=== PATIENT | male | born 1980 | race Two or more races ===

== ENCOUNTER 2020-01-13 10:10 | Emergency (ER) | payer MEDICAID ==
[~2020-01-13] VITALS: Ht 165.1 cm; Wt 126.6 kg
[~2020-01-13 10:10] MED LIST: AMLO5TAB15 PO; ATOR20TA PO
[2020-01-13] MEDS ORDERED: SODIUM CHLORIDE 0.9% 1,000 ML IV ONE ×2 (10:30)
[2020-01-13 10:58] LABS: Urine Bacteria NONE SEEN /hpf (None Seen); Urine Blood Negative /uL (Negative); Urine Mucus FEW (None Seen); Urine Specific Gravity 1.025 (1.001-1.035); Urine WBC 1 /hpf (0 - 3)
[2020-01-13 11:52] LABS: Basophils # (auto) 0 10 ^3/uL (0-0.2); Basophils % (auto) 0.4 % (0.0-2.0); Eosinophils # (auto) 0.1 10 ^3/uL (0-0.8); Eosinophils % (auto) 1.4 % (0.0-7.0); Hematocrit 47.9 % (41.0-53.0); Hemoglobin 16.4 g/dL (13.5-17.5); Lymphocytes # (auto) 1.3 10 ^3/uL (0.4-5.4); Lymphocytes % (auto) 17.6 % (10.0-50.0); Mean Corpuscular Hemoglobin 32.6 pg (28.0-32.0); Mean Corpuscular Hgb Conc. 34.2 g/dL (32.0-36.0); Mean Corpuscular Volume 95.4 fL (80.0-100.0); Monocytes # (auto) 0.5 10 ^3/uL (0-1.3); Monocytes % (auto) 6.4 % (0.0-12.0); Neutrophils # (auto) 5.4 10 ^3/uL (1.6-8.6); Neutrophils % (auto) 74.2 % (37.0-80.0); Nucleated Red Blood Cells % 0.1 %; Platelet Count (auto) 318 10^3/uL (140-450); Red Blood Cells 5.02 10^6/uL (4.5-5.90); Red Cell Distribution Width 12.7 % (11.8-14.3); White Blood Cell 7.3 10^3/uL (4.4-10.8)
[2020-01-13 12:27] LABS: Alanine Aminotransferase 148 U/L (16-61); Albumin 3.8 g/dL (3.4-5.0); Anion Gap 7 (5-15); Aspartate Aminotransferase 72 U/L (15-37); BUN/Creatinine Ratio 18.4; Blood Urea Nitrogen 14 mg/dL (7-18); Calcium 8.7 mg/dL (8.5-10.1); Carbon Dioxide 24 mmol/L (21-32); Chloride 105 mmol/L (98-107); GFR African American 147 mL/min; GFR Non-African American 121 mL/min; Glucose 98 mg/dL (74-106); Lipase 78 U/L (73-393); Sodium 136 mmol/L (136-145); Total Protein 8.1 g/dL (6.4-8.2)
[2020-01-13 12:32] LABS: Alkaline Phosphatase 99 U/L (45-117); Bilirubin, Total 0.8 mg/dL (0.2-1.0)
[2020-01-13 16:00] VITALS: BP 130/78
== END 2020-01-13 16:45 | disposition home or self-care (01) ==
LOC: ER 10:10
DX: K80.20 Calculus of gallbladder without cholecystitis without obstruction (principal); J18.9 Pneumonia, unspecified organism; E78.5 Hyperlipidemia, unspecified; I10 Essential (primary) hypertension; F17.210 Nicotine dependence, cigarettes, uncomplicated; F12.10 Cannabis abuse, uncomplicated
CPT/HCPCS: 36415; 71045; 74176; 80053; 81001; 83690; 84484; 85025

== ENCOUNTER 2025-01-14 09:48 | Inpatient (IN) | payer MEDICAID ==
[~2025-01-14] VITALS: Ht 165.1 cm; Wt 126.0 kg
[~2025-01-14 09:48] MED LIST changes: +AMLO1TAB22 PO; -AMLO5TAB15 PO
--- NOTE | 2025-01-14 10:20 | ED.PDOC ---
GI ASSESSMENT HPI Comments 44 year old male with PMHx HTN, HLD presents to the ED with a chief complaint of RT flank pain onset 3 days. Patient states he has been experiencing RT flank pain radiating to RUQ as well as dark urine, metallic taste in mouth. Patient was drinking ETOH daily, about 2 tall cans a day, last drink was 1 week ago. Denies fever, chills, headache, dizziness,dysuria, hematuria, hematemesis, nausea, vomiting, diarrhea, chest pain, shortness of breath, changes in skin color. No other symptoms or modifying factors present at this time. Chief Complaint: Flank Pain Time Seen by MD: 10:05 Primary Care Provider: MAXIME Stout Notes: Medications, Allergies Allergies: Coded Allergies: NO KNOWN ALLERGIES (Unverified , 02/01/17) Home Meds Reported Medications Atorvastatin Calcium (Lipitor) 20 Mg Tab, 1 TAB PO DAILY, #90 TAB 1 Refill 02/02/17 Amlodipine Besylate (Amlodipine Besylate) 5 Mg Tab, 10 MG PO DAILY for 30 Days, MG 02/02/17 Information Source: Patient Mode of Arrival: Ambulatory Duration: Since onset Prehospital treatment: None Quality: Sharp Vomitus: None Severity: Moderate Recent: None Recent Hx of: None Pain Location: RUQ Modifying Factors: Nothing Associated sign and symptoms: Abdominal Pain Past Medical History PAST MEDICAL HISTORY: High Lipids, HTN Surgical History: Hernia Repair Family History Family History: No family hx of Heart cipriano, No family hx of HTN Social History Smoker: Cigarettes, Greater Than 1 Pack/Day, Other Alcohol: Heavy Drugs: Marijuana Lives In: Home Constitutional: denies: chills, diaphoresis, fatigue, fever, malaise, sweats, weakness, others EENTM: denies: blurred vision, double vision, ear bleeding, ear discharge, ear drainage, ear pain, ear ringing, eye pain, eye redness, hearing loss, mouth pain, mouth swelling, nasal discharge, nose bleeding, nose congestion, nose pain, photophobia, tearing, throat pain, throat swelling, voice changes, others Respiratory: denies: cough, hemoptysis, orthopnea, SOB at rest, shortness of breath, SOB with excertion, stridor, wheezing, others Cardiovascular: denies: chest pain, dizzy spells, diaphoresis, Dyspnea on exertion, edema, irregular heart beat, left arm pain, lightheadedness, palpitations, PND, syncope, others Gastrointestinal: reports: abdominal pain (RUQ); denies: abdomen distended, blood streaked bowels, constipated, diarrhea, dysphagia, difficulty swallowing, hematemesis, melena, nausea, poor appetite, poor fluid intake, rectal bleeding, rectal pain, vomiting, others Genitourinary: reports: flank pain (RT), others (dark urine); denies: burning, dysuria, frequency, hematuria, incontinence, penile discharge, penile sore, pain, testicle pain, testicle swelling, urgency Neurological: denies: dizziness, fainting, headache, left sided numbness, left sided weakness, numbness, paresthesia, pre-existing deficit, right sided numbnes s, right sided weakness, seizure, speech problems, tingling, tremors, weakness, others Musculoskeletal: denies: back pain, gout, joint pain, joint swelling, muscle pain, muscle stiffness, neck pain, others Integumetry: denies: bruises, change in color, change in hair/nails, dryness, laceration, lesions, lumps, rash, wounds, others Allergic/Immunocompromised: denies: Difficulty Healing, Frequent Infections, Hives, Itching, others Hematologic/Lymphatic: denies: anemia, blood clots, easy bleeding, easy bruising, swollen glands, others Endocrine: denies: excessive hunger, excessive sweating, excessive thirst, excessive urination, flushing, intolerance to cold, intolerance to heat, unexplained weight gain, unexplained weight loss, others Psychiatric: denies: anxiety, bipolar disorder, depression, hopeless, panic disorder, schizophrenia, sleepless, suicidal, others All Other Systems: Reviewed and Negative Physical Exam General Appearance: No Apparent Distress, Normal HEENT: Normal ENT Inspection, Pharynx Normal, TMs Normal Neck: Full Range of Motion, Non-Tender, Normal, Normal Inspection Respiratory: Chest Non-Tender, Lungs Clear, No Accessory Muscle Use, No Respiratory Distress, Normal Breath Sounds Cardiovascular: No Edema, No JVD, No Murmur, No Gallop, Normal Peripheral Pulses, Regular Rate/Rhythm Breast Exam: Deferred Gastrointestinal: No Organomegaly, No Pulsatile Mass, Normal Bowel Sounds, RUQ (mild tenderness), Tenderness (mild RUQ tenderness) Genitalia: Deferred Pelvic: Deferred Rectal: Deferred Extremities: No calf tenderness, Normal capillary refill, Normal inspection, Normal range of motion, Non-tender, No pedal edema Musculoskeletal : Apperance: Normal Neurologic: Alert, electronic assembly II-XII nml as Tested, No Motor Deficits, Normal Affect, Normal Mood, No Sensory Deficits Cerebellar Function: Normal Reflexes: Normal Skin: Dry, Normal Color, Warm Lymphatic: No Adenopathy Was a procedure done? Was a procedure done?: No GI differential Dx Differential Diagnosis: Other (pancreatitis, hepatitis, biliary colic, colitis, constipation) X-Ray, Labs, Meds, VS Vital Signs Date Time Temp Pulse Resp B/P (MAP) Pulse Ox O2 Delivery O2 Flow Rate FiO2 01/14/25 11:10 79 16 100 Room Air* 0 21 01/14/25 11:08 99.3 74 16 158/94 (115) 95 99.3 01/14/25 09:53 98.6 78 18 172/110 97 98.6 Lab Test 01/14/25 10:24 Range/Units White Blood Count 7.8 4.4-10.8 10^3/uL Red Blood Count 4.87 4.5-5.90 10^6/uL Hemoglobin 15.6 13.5-17.5 g/dL Hematocrit 45.5 41.0-53.0 % Mean Corpuscular Volume 93.5 80.0-100.0 fL Mean Corpuscular Hemoglobin 32.1 H 28.0-32.0 pg Mean Corpuscular Hemoglobin Concent 34.3 32.0-36.0 g/dL Red Cell Distribution Width 12.8 11.8-14.3 % Platelet Count 327 140-450 10^3/uL Mean Platelet Volume 7.2 6.9-10.8 fL Neutrophils (%) (Auto) 74.8 37.0-80.0 % Lymphocytes (%) (Auto) 17.9 10.0-50.0 % Monocytes (%) (Auto) 5.2 0.0-12.0 % Eosinophils (%) (Auto) 1.7 0.0-7.0 % Basophils (%) (Auto) 0.4 0.0-2.0 % Neutrophils # (Auto) 5.8 1.6-8.6 10 ^3/uL Lymphocytes # (Auto) 1.4 0.4-5.4 10 ^3/uL Monocytes # (Auto) 0.4 0-1.3 10 ^3/uL Eosinophils # (Auto) 0.1 0-0.8 10 ^3/uL Basophils # (Auto) 0 0-0.2 10 ^3/uL Nucleated Red Blood Cells 0.1 % Sodium Level 144 136-145 mmol/L Potassium Level 3.7 3.5-5.1 mmol/L Chloride Level 107 98-107 mmol/L Carbon Dioxide Level 26 20-31 mmol/L Anion Gap 11 5-15 Blood Urea Nitrogen 7 L 9-23 mg/dL Creatinine 0.78 0.700-1.30 mg/dL Glomerular Filtration Rate Calc 113 >90 mL/min BUN/Creatinine Ratio 9.0 L 10.0-20.0 Serum Glucose 93 74-106 mg/dL Calcium Level 9.7 8.7-10.4 mg/dL Total Bilirubin 1.3 H 0.2-1.0 mg/dL Direct Bilirubin 0.4 H <0.3 mg/dL Aspartate Amino Transferase (AST) 28 13-40 U/L Alanine Aminotransferase (ALT) 27 7-40 U/L Alkaline Phosphatase 90 46-116 U/L Total Protein 7.8 5.7-8.2 g/dL Albumin 4.8 3.2-4.8 g/dL [place] [address] [phone] DIAGNOSTIC IMAGING Diagnostic Imaging Report : [id number] Signed PATIENT: ELAN GONZALES ACCT: [id number] UNIT: [id number] : 1980 LOC: ER ROOM / BED: / AGE / SEX: 44 / M ADM STATUS: REG ER SERVICE 1003 ORDERING PHYSICIAN: BAN GOLDEN MD PROCEDURE(s): GBUS - GALLBLADDER REASON: ruq pain ORDER NUMBER(s): [id number], ACCESSION NUMBER(s): [id number] INDICATION: ruq pain TECHNIQUE: Multiple real-time sonographic images were obtained of the right upper quadrant. COMPARISON: None FINDINGS: The liver demonstrates homogenous echotexture without focal mass lesions. The liver measures 16 cm. There is no intrahepatic or extrahepatic ductal dilatation. The common duct measures 11 mm. Gallstones are present. The gallbladder wall measures 0.2mm and is within normal limits. The right kidney measures 11 cm. The right kidney is normal in contour, size, and shape. The echogenicity is normal. There is no hydronephrosis. The pancreas is not well visualized due to overlying bowel gas. IMPRESSION: Gallstones are present. Dilated common bile duct measuring 11 mm. MRCP recommended. ATED BY: KELVIN ROWLEY MD DICTATED DATE/TIME: 01/14/251107 SIGNED BY: KELVIN ROWLEY MD SIGNED DATE/TIME: 01/14/251107 CC: Time of 1ST Reevaluation: 10:35 Reevaluation 1ST: Unchanged Patient Education/Counseling: Diagnosis, Treatment, Prognosis Family Education/Counseling: No Family Present Comments pt has dilated CBD and gallstone. however, without elevated LFTs nor signs of cholecystitis. pt will need MRCP, possible ERCP. pt will be transferred to [facility] for evaluation. i spoke to Dr Cabrera at [facility], who accepted the transfer. pt also agrees with the plan SEPSIS Sepsis Screen Date sepsis recognized/suspect: Jan 14, 2025 Time Sepsis recognized/suspect: 0950 Recent Procedure: No On Antibiotic Therapy: No Respiratory Rate >20: No Heart Rate >90: No Temp<36 C (96.8 F) or >38.3 C: No SBP <90 or MAP <65 mmHG: No New Acute Mental Status Change: No Is the patient on CPAP, BIPAP,: No Physician Orders Gallbladder (01/14/25 10:03) Vital Signs Date Time Temp Pulse Resp B/P (MAP) Pulse Ox O2 Delivery O2 Flow Rate FiO2 01/14/25 11:10 79 16 100 Room Air* 0 21 01/14/25 11:08 99.3 74 16 158/94 (115) 95 99.3 01/14/25 09:53 98.6 78 18 172/110 97 98.6 Laboratory Tests Test 01/14/25 10:24 White Blood Count 7.8 10^3/uL (4.4-10.8) Departure 1 Departure Time of Disposition: 11:44 Impression: Primary Impression: Biliary colic Additional Impression: Common bile duct dilatation Disposition: 02 SHORT TERM HOSPITAL Condition: Stable Discharged With: Self Critical Care Note Critical Care Time?: No Stability Stability form required: No Heart Score Heart Score: Heart Score Response (Comments) Value History N/A 0 EKG N/A 0 Age N/A 0 Risk Factors N/A 0 Troponin N/A 0 Total 0 I personally scribed for BAN GOLDEN MD ([email or web address]) on 01/14/25 at 10:20. Electronically submitted by Monika Joseph ([email or web address]). I personally scribed for BAN GOLDEN MD ([email or web address]) on 01/14/25 at 11:14. Electronically submitted by Monika Joseph ([email or web address]). BAN GOLDEN MD Jan 14, 2025 10:20
[2025-01-14 11:01] LABS: Hematocrit 45.5 % (41.0-53.0); Hemoglobin 15.6 g/dL (13.5-17.5); Mean Corpuscular Hemoglobin 32.1 pg (28.0-32.0); Mean Corpuscular Volume 93.5 fL (80.0-100.0); Nucleated Red Blood Cells % 0.1 %
[2025-01-14 11:10] VITALS: PULSE 79; RESP 16; O2SAT 100
--- NOTE | 2025-01-14 11:10 | DVH ---
INDICATION: ruq pain TECHNIQUE: Multiple real-time sonographic images were obtained of the right upper quadrant. COMPARISON: None FINDINGS: The liver demonstrates homogenous echotexture without focal mass lesions. The liver measures 16 cm. There is no intrahepatic or extrahepatic ductal dilatation. The common duct measures 11 mm. Gallstones are present. The gallbladder wall measures 0.2mm and is within normal limits. The right kidney measures 11 cm. The right kidney is normal in contour, size, and shape. The echogenicity is normal. There is no hydronephrosis. The pancreas is not well visualized due to overlying bowel gas. IMPRESSION: Gallstones are present. Dilated common bile duct measuring 11 mm. MRCP recommended.
[2025-01-14 11:16] LABS: Alanine Aminotransferase 27 U/L (7-40); Albumin 4.8 g/dL (3.2-4.8); Alkaline Phosphatase 90 U/L (46-116); Anion Gap 11 (5-15); BUN/Creatinine Ratio 9.0 (10.0-20.0); Calcium 9.7 mg/dL (8.7-10.4); Carbon Dioxide 26 mmol/L (20-31); Chloride 107 mmol/L (98-107); Glucose 93 mg/dL (74-106); Potassium 3.7 mmol/L (3.5-5.1); Sodium 144 mmol/L (136-145); Total Protein 7.8 g/dL (5.7-8.2)
[2025-01-14 11:17] LABS: Bilirubin, Direct 0.4 mg/dL (<0.3); Bilirubin, Total 1.3 mg/dL (0.2-1.0); Blood Urea Nitrogen 7 mg/dL (9-23)
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
[2025-01-14] MEDS ORDERED: DOCUSATE SOD 100 MG CAP PO PRN (14:45)
[2025-01-14] MEDS ORDERED: ONDANSETRON HCL 4 MG/2 ML VIAL IV PRN (14:45)
[2025-01-14 15:17] LABS: Magnesium 2.0 mg/dL (1.6-2.6); Triglycerides 140.0 mg/dL (< 150)
[2025-01-14 15:19] LABS: Cholesterol 149.0 mg/dL (< 200); HDL Cholesterol 40.0 mg/dL (40-59)
[2025-01-14 15:30] LABS: Lipase 36.0 U/L (12-53)
[2025-01-14 15:45] LABS: INR 1.15 (0.9-1.15); Partial Thromboplastin Time 27.3 SEC (24.5-34.5); Prothrombin Time 12.0 sec (9.3-11.8)
[2025-01-14 17:00] VITALS: BP 148/88; PULSE 72; RESP 20; TEMP 96.7; O2SAT 96
--- NOTE | 2025-01-14 17:13 | DVH ---
CHEST RADIOGRAPH Indication: Abdominal pain Technique: XY CHEST XRAY 1 VIEW Comparison: None FINDINGS: The cardiac silhouette is borderline enlarged. The lungs demonstrate left basilar airspace opacities. The pulmonary vasculature is mildly prominent. Small left pleural effusion. There is no pneumothorax. IMPRESSION: Left basilar airspace opacification. Follow-up to resolution to exclude underlying mass. Small left pleural effusion. Mild pulmonary vascular congestion
[2025-01-14] MEDS ORDERED: ENAL1TAB47 PO (17:19)
[2025-01-14] MEDS ORDERED: CLOP75TA70 PO (17:19)
[2025-01-14] MEDS ORDERED: SEMA0.25 (17:19)
[2025-01-14] MEDS ORDERED: ASPI81CH59 PO (17:19)
[2025-01-14] MEDS ORDERED: ACAM1TAB PO (17:19)
[2025-01-14] MEDS ORDERED: PANT40T PO (17:19)
[2025-01-14] MEDS ORDERED: ATOR40TA52 PO (17:19)
--- NOTE | 2025-01-14 17:43 | DVH ---
CLINICAL HISTORY: Rule out choledocholithiasis TECHNIQUE: MRI and MRCP of the abdomen was performed without gadolinium. 3D reconstructed images were created under concurrent radiologist supervision and archived on the PACS system. WID: COMPARISON: Ultrasound gallbladder from 01/14/2025 FINDINGS: Lower Thorax: There is a fat containing left-sided bochdalek hernia. Trace bilateral pleural effusions. Upper limits of normal-sized heart. Liver and Biliary system: Normal-sized liver. The portal vein flow voids are preserved. Gallbladder is normal caliber. There is cholelithiasis. There is no biliary ductal dilatation. No choledocholithiasis. Spleen: Unremarkable. Adrenal Glands and Kidneys: Normal adrenal glands. No hydronephrosis. There are bilateral renal cysts. Pancreas and Retroperitoneum: Unremarkable. Aorta and Major Vessels: Abdominal aorta is normal in caliber. Visualized iliac vessels are normal in caliber. Bowel, Mesentery and Peritoneal space: Normal appendix. Normal caliber small and large bowel. No fluid collection. Abdominal wall and Osseous Structures: Minor thoracic and lumbar spondylosis with multilevel disc desiccation. IMPRESSION: 1. Cholelithiasis in a Normal caliber gallbladder. 2. No choledocholithiasis or biliary ductal dilatation. 3. Trace bilateral pleural effusions. 4. Small bilateral renal cysts.
[2025-01-14 17:55] LABS: Amphetamine Screen, Urine Neg (NEGATIVE)
[2025-01-14 17:56] LABS: Urine Protein, UAD TRACE (Negative)
[2025-01-14 18:02] LABS: Barbiturate Scree,Urine Neg (NEGATIVE); Benzodiazephine Screen, Urine Neg (NEGATIVE); Cannabinoid Screen, Urine Neg (NEGATIVE); Cocaine Screen, Urine Neg (NEGATIVE); Opiate Scree,Urine Neg (NEGATIVE); Phencyclidine Screen, Urine Neg (NEGATIVE)
[2025-01-14] MEDS: MORPHINE SULFATE INJ 2 MG/ml SYRG IV PRN (18:14)
[2025-01-14] MEDS: SODIUM CHLORIDE 0.9% 1,000 ML IV SCH (18:21)
[2025-01-14] MEDS: SODIUM CHLORIDE 0.9% 500 ML IV ONE (18:25)
[2025-01-14 20:00] VITALS: PULSE 69; RESP 19; O2SAT 96
[2025-01-14 20:10] VITALS: BP 139/98; PULSE 66; RESP 18; TEMP 97.7; O2SAT 96
[2025-01-14 21:00] VITALS: BP 162/101; PULSE 69; RESP 19; TEMP 97.9; O2SAT 96
[2025-01-14] MEDS: LATANOPROST 0.005 % OPTH(EYE) SOL 2.5ML EACHEYE SCH (22:00)
[2025-01-14] MEDS: ATORVASTATIN 20 MG TAB PO SCH (22:26)
[2025-01-14] MEDS: PANTOPRAZOLE 40 MG/10 ML VIAL INJ IV SCH (22:26)
[2025-01-14] MEDS: MORPHINE SULFATE 4 MG/ML SYR/VIAL IV PRN (22:44)
[2025-01-15] VITALS (7 sets, daily range): BP systolic 115–154; BP diastolic 69–102; PULSE 60–82; RESP 18–20; TEMP 97.6–98.2; O2SAT 95–97
[2025-01-15 07:49] LABS: Hematocrit 39.8 % (41.0-53.0); Hemoglobin 14.1 g/dL (13.5-17.5); Mean Corpuscular Hemoglobin 32.3 pg (28.0-32.0); Mean Corpuscular Volume 91.6 fL (80.0-100.0); Nucleated Red Blood Cells % 0.0 %
[2025-01-15 07:58] LABS: Alanine Aminotransferase 23 U/L (7-40); Albumin 4.2 g/dL (3.2-4.8); Alkaline Phosphatase 76 U/L (46-116); Anion Gap 12 (5-15); BUN/Creatinine Ratio 14.9 (10.0-20.0); Blood Urea Nitrogen 10 mg/dL (9-23); Calcium 9.2 mg/dL (8.7-10.4); Carbon Dioxide 25 mmol/L (20-31); Glucose 76 mg/dL (74-106); Sodium 144 mmol/L (136-145); Total Protein 6.7 g/dL (5.7-8.2)
[2025-01-15 08:05] LABS: Bilirubin, Total 1.7 mg/dL (0.2-1.0); Chloride 107 mmol/L (98-107); Potassium 3.4 mmol/L (3.5-5.1)
[2025-01-15] MEDS: ASPirin-EC 81 mg tab PO SCH (09:06)
[2025-01-15] MEDS: ENALAPRIL MALEATE 10 MG TAB PO SCH (09:06)
[2025-01-15] MEDS ORDERED: ENOXAPARIN SOD 40 MG/0.4 ML SYRINGE SC SCH (10:00)
[2025-01-15] MEDS ORDERED: PANTOPRAZOLE 40 MG TAB PO SCH (10:00)
--- NOTE | 2025-01-15 12:25 | DVH ---
CLINICAL HISTORY: headache TECHNIQUE: Mendoza-scale, Color and Duplex Doppler imaging of the bilateral carotid systems was performed. COMPARISON: None Findings: Right Carotid system: There is mild plaque present in the right carotid system. Left Carotid system: There is mild plaque present in the left carotid system. The following flow velocities were obtained (cm/sec). Right Carotid System: ICA PSV: 87 cm/sec ICA PDV: 33 cm/sec ICA/CCA Ratio: 1.2 Left Carotid System: ICA PSV: 128 cm/sec ICA PDV: 51 cm/sec ICA/CCA Ratio: 1.9 The right and left common carotid and external carotid arteries are patent. There is antegrade flow in both vertebral arteries and external carotid arteries. IMPRESSION: LESS THAN 50% RIGHT ICA NARROWING. 50-69% LEFT ICA NARROWING. Consider CTA for better evaluation. Estimation of carotid stenosis is based on velocity parameters that correlate the residual internal carotid diameter with that of the more distal vessel in accordance with the [place] Symptomatic Carotid Endarterectomy Trial (NASCET).
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
[2025-01-15] MEDS: POTASSIUM CHL 20 Meq TABLET PO ONE (13:51)
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
[2025-01-16 01:00] VITALS: BP 121/81; PULSE 76; RESP 18; TEMP 97.9; O2SAT 95
[2025-01-16 05:00] VITALS: BP 141/91; PULSE 74; RESP 19; TEMP 97.8; O2SAT 96
[2025-01-16 07:31] LABS: Alanine Aminotransferase 18 U/L (7-40); Albumin 4.0 g/dL (3.2-4.8); Alkaline Phosphatase 77 U/L (46-116); Anion Gap 12 (5-15); BUN/Creatinine Ratio 16.9 (10.0-20.0); Blood Urea Nitrogen 11 mg/dL (9-23); Calcium 8.8 mg/dL (8.7-10.4); Carbon Dioxide 24 mmol/L (20-31); Glucose 96 mg/dL (74-106); Potassium 3.7 mmol/L (3.5-5.1); Sodium 144 mmol/L (136-145); Total Protein 6.5 g/dL (5.7-8.2)
[2025-01-16 07:32] LABS: Bilirubin, Total 1.2 mg/dL (0.2-1.0)
[2025-01-16 07:33] LABS: Chloride 108 mmol/L (98-107)
[2025-01-16 09:00] VITALS: BP 174/105; PULSE 72; RESP 17; TEMP 98.1; O2SAT 94
[2025-01-16] MEDS: ACETAMINOPHEN 325 MG TAB PO PRN (09:32)
[2025-01-16 11:16] LABS: Hematocrit 38.2 % (41.0-53.0); Hemoglobin 13.3 g/dL (13.5-17.5); Mean Corpuscular Hemoglobin 32.2 pg (28.0-32.0); Mean Corpuscular Volume 92.5 fL (80.0-100.0); Nucleated Red Blood Cells % 0.1 %
[2025-01-16] MEDS ORDERED: IOHEXOL 350 MG/ML 100ML IJ ONE (12:52)
[2025-01-16 13:00] VITALS: BP 151/98; PULSE 70; RESP 18; TEMP 98.1; O2SAT 97
[2025-01-16 13:11] LABS: Hepatitis B Surface Antigen Negative (Negative)
--- NOTE | 2025-01-16 13:25 | DVH ---
CLINICAL HISTORY: carotid artery stenosis TECHNIQUE: CT angiogram of the neck was performed without and with intravenous contrast. 3D MIP reconstructed images were created and archived on the PACS system. This exam was performed according to our departmental dose optimization program. Up-to-date CT equipment and radiation dose reduction techniques are utilized as appropriate. CTDI 23 DLP 499 COMPARISON: US CAROTID DUPLX W COLOR DOP on DOS: 01/15/25 FINDINGS: The common carotid, internal carotid, and vertebral arteries are patent with no evidence for high grade narrowing, occlusion, and dissection. There are minimal atherosclerotic changes of the right carotid bulb with minimal calcification. There are no atherosclerotic changes at the left carotid bulb. There is no narrowing NASCET criteria. IMPRESSION: No evidence for carotid stenosis. Ultrasound findings are therefore artifactual.
[2025-01-16 13:31] LABS: Hepatitis C Antibody Negative (Negative)
--- NOTE | 2025-01-16 15:13 | DVHDSRES ---
Discharge Summary Date of Admission Resident Creating Document: FELIPE DAVILA RESIDENT Jan 14, 2025 at 14:36 Date of Discharge: Jan 16, 2025 Admitting Diagnosis abdominal pain Labs/Diagnostic Data: Laboratory Results Test 01/16/25 06:18 01/15/25 20:41 01/14/25 17:06 01/14/25 14:56 White Blood Count 7.8 10^3/uL (4.4-10.8) Red Blood Count 4.13 10^6/uL (4.5-5.90) Hemoglobin 13.3 g/dL (13.5-17.5) Hematocrit 38.2 % (41.0-53.0) Mean Corpuscular Volume 92.5 fL (80.0-100.0) Mean Corpuscular Hemoglobin 32.2 pg (28.0-32.0) Mean Corpuscular Hemoglobin Concent 34.8 g/dL (32.0-36.0) Red Cell Distribution Width 12.6 % (11.8-14.3) Platelet Count 323 10^3/uL (140-450) Mean Platelet Volume 7.7 fL (6.9-10.8) Neutrophils (%) (Auto) 67.1 % (37.0-80.0) Lymphocytes (%) (Auto) 22.8 % (10.0-50.0) Monocytes (%) (Auto) 6.4 % (0.0-12.0) Eosinophils (%) (Auto) 3.2 % (0.0-7.0) Basophils (%) (Auto) 0.5 % (0.0-2.0) Neutrophils # (Auto) 5.3 10 ^3/uL (1.6-8.6) Lymphocytes # (Auto) 1.8 10 ^3/uL (0.4-5.4) Monocytes # (Auto) 0.5 10 ^3/uL (0-1.3) Eosinophils # (Auto) 0.2 10 ^3/uL (0-0.8) Basophils # (Auto) 0 10 ^3/uL (0-0.2) Nucleated Red Blood Cells 0.1 % Sodium Level 144 mmol/L (136-145) Potassium Level 3.7 mmol/L (3.5-5.1) Chloride Level 108 mmol/L (98-107) Carbon Dioxide Level 24 mmol/L (20-31) Anion Gap 12 (5-15) Blood Urea Nitrogen 11 mg/dL (9-23) Creatinine 0.65 mg/dL (0.700-1.30) Glomerular Filtration Rate Calc 119 mL/min (>90) BUN/Creatinine Ratio 16.9 (10.0-20.0) Serum Glucose 96 mg/dL (74-106) Calcium Level 8.8 mg/dL (8.7-10.4) Total Bilirubin 1.2 mg/dL (0.2-1.0) Aspartate Amino Transferase (AST) 19 U/L (13-40) Alanine Aminotransferase (ALT) 18 U/L (7-40) Alkaline Phosphatase 77 U/L (46-116) Total Protein 6.5 g/dL (5.7-8.2) Albumin 4.0 g/dL (3.2-4.8) Stool Occult Blood Negative (Negative) Stool Occult Blood Sample #3 (Negative) Urine Color Yellow (Yellow) Urine Clarity Clear (Clear) Urine pH 5.5 (5.0-9.0) Urine Specific Endeavor 1.027 (1.001-1.035) Urine Protein Trace (Negative) Urine Ketones 3+ (Negative) Urine Blood Negative /uL (Negative) Urine Nitrite Negative (Negative) Urine Bilirubin Negative (Negative) Urine Urobilinogen Normal mg/dL (Negative) Urine Leukocyte Esterase Negative /uL (Negative) Urine RBC 1 /hpf (0 - 3) Urine Microscopic WBC 1 /HPF (0-3) Urine Squamous Epithelial Cells Few /hpf (<5) Urine Bacteria None seen /hpf (None Seen) Urine Hyaline Casts Few /lpf (0 - 2) Urine Mucus Few (None Seen) Urine Glucose Normal mg/dL (Normal) Urine Opiates Screen Neg (NEGATIVE) Urine Fentanyl Screen Neg (NEGATIVE) Urine Barbiturates Screen Neg (NEGATIVE) Urine Phencyclidine Screen Neg (NEGATIVE) Urine Amphetamines Screen Neg (NEGATIVE) Urine Benzodiazepines Screen Neg (NEGATIVE) Urine Cocaine Screen Neg (NEGATIVE) Urine Cannabinoids Screen Neg (NEGATIVE) Prothrombin Time 12.0 sec (9.3-11.8) Prothrombin Time INR 1.15 (0.9-1.15) Activated Partial Thromboplast Time 27.3 SEC (24.5-34.5) Test 01/14/25 10:27 01/14/25 10:24 Hepatitis B Surface Antigen Negative (Negative) Hepatitis C Antibody Negative (Negative) Hemoglobin A1c 5.2 % A1C (<5.7) Phosphorus Level 2.8 mg/dL (2.4-5.1) Magnesium Level 2.0 mg/dL (1.6-2.6) Direct Bilirubin 0.4 mg/dL (<0.3) Triglycerides Level 140 mg/dL (< 150) Cholesterol Level 149 mg/dL (< 200) LDL Cholesterol 82 mg/dL (< 100) HDL Cholesterol 40 mg/dL (40-59) Lipase 36 U/L (12-53) Vitamin B12 Level 474 pg/mL (211-911) Vitamin D 25-Hydroxy 44.8 ng/mL (30.0-100) Thyroid Stimulating Hormone (TSH) 0.63 uIU/mL (0.55-4.78) Other Laboratory Tests 01/16/25 06:18 Brief Hx & Hospital Course: The patient is a 44-year-old male with a past medical history of hypertension, hyperlipidemia, morbid obesity, 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 He presented to [facility] emergency department with right upper quadrant abdominal pain that had been present for three weeks and worsened over the past few days. The pain was associated with nausea but not vomiting, fever, or chills. He reported a recent emergency department visit at [facility] for melena, where he was diagnosed with gastritis without endoscopic intervention. He previously underwent an EGD in January 2024 that showed gastritis. On arrival, the patient was afebrile and his blood pressure was 147/95 mmHg. Laboratory studies showed no transaminitis or leukocytosis. Gallbladder ultrasound revealed gallstones and a dilated common bile duct measuring 11 mm. MRCP demonstrated cholelithiasis in a normal-caliber gallbladder without choledocholithiasis or biliary ductal dilatation. Carotid duplex ultrasound showed less than 50% stenosis of the right internal carotid artery and 5069% stenosis of the left internal carotid artery. Chest X- ray revealed left basilar airspace opacification, a small left pleural effusion, and mild pulmonary vascular congestion. CT angiogram of the neck confirmed patent carotid and vertebral arteries without high-grade narrowing, occlusion, or dissection. The patient was evaluated by gastroenterology and surgery. The surgical team recommended holding Plavix for five days prior to elective cholecystectomy, with the earliest possible surgery scheduled for January 21, 2025, if symptoms persist. There was no indication for urgent inpatient surgery. Pain was managed with acetaminophen and morphine. Nausea was treated with intravenous ondansetron. Intravenous fluids were administered at 25 mL per hour. Protonix was given for peptic ulcer disease prophylaxis and Lovenox for deep vein thrombosis prophylaxis. The patient was maintained on a cardiac diet and continued home medications including atorvastatin and Xalatan. On evaluation today, he states he is well, pain is manageable. His vitals have remained stable for discharge home, follow up visit in discharge clinic. All medications and recommendations were thoroughly explained and the patient states he understands and agrees. Detailed discussion held with patient at bedside were all questions were answered and concerns were addressed. Examination General Appearance: Cooperative. Well developed. Well nourished. NAD Head Exam: Normal inspection Neck Exam: Normal inspection. Non-tender. Normal alignment Pulmonary/Respiratory: Chest non-tender. Clear bilateral breath sounds, no crackles, no wheezing. Cardiovascular/Chest: Regular rate and rhythm. No murmurs. No JVD. Peripheral Pulses: 2+ Radial (R). 2+ Radial (L). 2+ Pedal (R). 2+ Pedal (L) Abdominal Exam: Soft, prominent, tenderness on right upper quadrant with positive Schneider's sign, rest of abdomen nontender, no organomegaly, positive bowel sounds Ankle Exam: Negative ankle edema Lower extremities: Negative lower extremity edema Neuro/Mental Status: A&O x4. Coherent. Thoughts/Psych: Normal thought pattern. Appropriate mood and affect. Good judgement and insight Skin Exam: Normal inspection. Normal color. Warm. Dry Operations or Procedures PATIENT: LEAN GONZALES ACCT: [id number] UNIT: [id number] : 1980 LOC: [facility] ROOM / BED: [address] [place] [address] AGE / SEX: 44 / M ADM STATUS: ADM IN SERVICE 1113 ORDERING PHYSICIAN: FELIPE DAVILA PROCEDURE(s): CTANK - CT ANGIO NECK CONTRAST REASON: carotid artery stenosis ORDER NUMBER(s): [id number], ACCESSION NUMBER(s): [id number] CLINICAL HISTORY: carotid artery stenosis TECHNIQUE: CT angiogram of the neck was performed without and with intravenous contrast. 3D MIP reconstructed images were created and archived on the PACS system. This exam was performed according to our departmental dose optimization program. Up-to-date CT equipment and radiation dose reduction techniques are utilized as appropriate. CTDI 23 DLP 499 COMPARISON: US CAROTID DUPLX W COLOR DOP on DOS: 01/15/25 FINDINGS: The common carotid, internal carotid, and vertebral arteries are patent with no evidence for high grade narrowing, occlusion, and dissection. There are minimal atherosclerotic changes of the right carotid bulb with minimal calcification. There are no atherosclerotic changes at the left carotid bulb. There is no narrowing NASCET criteria. IMPRESSION: No evidence for carotid stenosis. Ultrasound findings are therefore artifactual. ------ PATIENT: ELAN GONZALES ACCT: [id number] UNIT: [id number] : 1980 LOC: [facility] ROOM / BED: [address] [place] [address] AGE / SEX: 44 / M ADM STATUS: ADM IN SERVICE 1115 ORDERING PHYSICIAN: FELIPE DAVILA PROCEDURE(s): CARCL - CAROTID DUPLX W COLOR DOP REASON: headache ORDER NUMBER(s): [id number], ACCESSION NUMBER(s): [id number] CLINICAL HISTORY: headache TECHNIQUE: Mendoza-scale, Color and Duplex Doppler imaging of the bilateral carotid systems was performed. COMPARISON: None Findings: Right Carotid system: There is mild plaque present in the right carotid system. Left Carotid system: There is mild plaque present in the left carotid system. The following flow velocities were obtained (cm/sec). Right Carotid System: ICA PSV: 87 cm/sec ICA PDV: 33 cm/sec ICA/CCA Ratio: 1.2 Left Carotid System: ICA PSV: 128 cm/sec ICA PDV: 51 cm/sec ICA/CCA Ratio: 1.9 The right and left common carotid and external carotid arteries are patent. There is antegrade flow in both vertebral arteries and external carotid arteries. IMPRESSION: LESS THAN 50% RIGHT ICA NARROWING. 50-69% LEFT ICA NARROWING. Consider CTA for better evaluation. Estimation of carotid stenosis is based on velocity parameters that correlate the residual internal carotid diameter with that of the more distal vessel in accordance with the [place] Symptomatic Carotid Endarterectomy Trial (NASCET). - ----- PATIENT: ELAN GONZALES ACCT: [id number] UNIT: [id number] : 1980 LOC: [facility] ROOM / BED: [address] [place] [address] AGE / SEX: 44 / M ADM STATUS: ADM IN SERVICE 1436 ORDERING PHYSICIAN: JEOVANY RUBIN RESIDENT PROCEDURE(s): CXR1 - CHEST XRAY 1 VIEW REASON: Abdominal pain ORDER NUMBER(s): [id number], ACCESSION NUMBER(s): [id number] CHEST RADIOGRAPH Indication: Abdominal pain Technique: XY CHEST XRAY 1 VIEW Comparison: None FINDINGS: The cardiac silhouette is borderline enlarged. The lungs demonstrate left basilar airspace opacities. The pulmonary vasculature is mildly prominent. Small left pleural effusion. There is no pneumothorax. IMPRESSION: Left basilar airspace opacification. Follow-up to resolution to exclude underlying mass. Small left pleural effusion. Mild pulmonary vascular congestion ------ PATIENT: ELAN GONZALES ACCT: [id number] UNIT: [id number] : 1980 LOC: [facility] ROOM / BED: 1012-ER / A AGE / SEX: 44 / M ADM STATUS: ADM IN SERVICE 1436 ORDERING PHYSICIAN: JEOVANY RUBIN RESIDENT PROCEDURE(s): MRCP - MRCP MRI REASON: Rule out choledocholithiasis ORDER NUMBER(s): [id number], ACCESSION NUMBER(s): [id number] CLINICAL HISTORY: Rule out choledocholithiasis TECHNIQUE: MRI and MRCP of the abdomen was performed without gadolinium. 3D reconstructed images were created under concurrent radiologist supervision and archived on the PACS system. WID: COMPARISON: Ultrasound gallbladder from 01/14/2025 FINDINGS: Lower Thorax: There is a fat containing left-sided bochdalek hernia. Trace bilateral pleural effusions. Upper limits of normal-sized heart. Liver and Biliary system: Normal-sized liver. The portal vein flow voids are preserved. Gallbladder is normal caliber. There is cholelithiasis. There is no biliary ductal dilatation. No choledocholithiasis. Spleen: Unremarkable. Adrenal Glands and Kidneys: Normal adrenal glands. No hydronephrosis. There are bilateral renal cysts. Pancreas and Retroperitoneum: Unremarkable. Aorta and Major Vessels: Abdominal aorta is normal in caliber. Visualized iliac vessels are normal in caliber. Bowel, Mesentery and Peritoneal space: Normal appendix. Normal caliber small and large bowel. No fluid collection. Abdominal wall and Osseous Structures: Minor thoracic and lumbar spondylosis with multilevel disc desiccation. IMPRESSION: 1. Cholelithiasis in a Normal caliber gallbladder. 2. No choledocholithiasis or biliary ductal dilatation. 3. Trace bilateral pleural effusions. 4. Small bilateral renal cysts. - ----- PATIENT: ELAN GONZALES ACCT: [id number] UNIT: [id number] : 1980 LOC: ER ROOM / BED: / AGE / SEX: 44 / M ADM STATUS: REG ER SERVICE 1003 ORDERING PHYSICIAN: BAN GOLDEN MD PROCEDURE(s): GBUS - GALLBLADDER REASON: ruq pain ORDER NUMBER(s): [id number], ACCESSION NUMBER(s): [id number] INDICATION: ruq pain TECHNIQUE: Multiple real-time sonographic images were obtained of the right upper quadrant. COMPARISON: None FINDINGS: The liver demonstrates homogenous echotexture without focal mass lesions. The liver measures 16 cm. There is no intrahepatic or extrahepatic ductal dilatation. The common duct measures 11 mm. Gallstones are present. The gallbladder wall measures 0.2mm and is within normal limits. The right kidney measures 11 cm. The right kidney is normal in contour, size, and shape. The echogenicity is normal. There is no hydronephrosis. The pancreas is not well visualized due to overlying bowel gas. IMPRESSION: Gallstones are present. Dilated common bile duct measuring 11 mm. MRCP recommended. - ----- Condition at Discharge: Stable Final Diagnosis/Problems List Cholelithiasis Common bile duct dilation Biliary colic without evidence of acute cholecystitis Glaucoma History of CVA Mixed hyperlipidemia Discharge Disposition: Home Discharge Instruct/Medications Diet: Regular Activity: No Restrictions, As Tolerated Follow Up/Referral: Follow up with PCP within 1 week Medications: see prescription Continue home medications Scheduled Acamprosate Calcium (Acamprosate Calcium Dr), 2 TAB PO TID, (Reported) Aspirin (Aspirin Low Dose), 1 TAB PO DAILY, (Reported) Atorvastatin Calcium (Atorvastatin Calcium), 1 TAB PO DAILY, (Reported) Clopidogrel Bisulfate (Clopidogrel), 1 TAB PO DAILY, (Reported) Enalapril Maleate (Enalapril Maleate), 1 TAB PO DAILY, (Reported) Pantoprazole Sodium Sesquihydr (Pantoprazole Sodium), 1 TAB PO DAILY, (Reported) Miscellaneous Medications Semaglutide (Wegovy), (Reported) Discharge Statement: "Patient was advised to return to the ER or call 911 if any headaches, dizziness, shortness of breath, chest pain, abdominal pain, bleeding, fevers, or worsening of medical condition. Patient was counseled about treatment plan, medications, possible side effects, patientverbalized understanding. All questions were answered to the best of my ability. This discharge took greater then 30 minutes in planning, reviewing documentation, counseling the patient, and discussing with other team members." ASSESSMENT ASSESSMENT Assessment Cholelithiasis Common bile duct dilation Biliary colic without evidence of acute cholecystitis Glaucoma History of CVA Mixed hyperlipidemia Date of Service: Jan 16, 2025 Billing Provider: ARTURO QIU MD Common Visit Codes: 40427-ILM/OBS DISCH DAY >30min FELIPE DAVILA RESIDENT Jan 16, 2025 15:13
[2025-01-16 17:00] VITALS: BP 144/100; PULSE 64; RESP 19; TEMP 98.3; O2SAT 97
[2025-01-16 17:40] VITALS: BP 148/99; TEMP 36.8
--- NOTE | 2025-01-16 18:01 | DVHPN2 ---
Progress Note Date Seen: Jan 16, 2025 Resident Creating Document: JOHNY MORIN RESIDENT Medical Necessity Reason Pt with a Central, PICC or Fol: No Subjective Patient reports: No new complaints, Feels better Objective vital signs Vital Sign Date Time Temp Pulse Resp B/P (MAP) Pulse Ox O2 Delivery O2 Flow Rate FiO2 01/16/25 17:40 36.8 01/16/25 17:00 64 19 144/100 (115) 97 01/16/25 08:00 Room Air* 0 21 Total Intake and Output 01/15/25 01/15/25 01/16/25 15:00 23:00 07:00 Intake Total 1625 ml 1218 ml Balance 1625 ml 1218 ml medications Current Medications Medications Dose Ordered Sig/Michel Route Start Time Stop Time Status Last Admin Dose Admin Acetaminophen 325 mg Q4HP PRN PO 01/14/25 14:45 01/16/25 09:32 325 MG Ondansetron HCl 4 mg Q4HP PRN IV 01/14/25 14:45 Docusate Sodium 100 mg BIDPRN PRN PO 01/14/25 14:45 Sodium Chloride 1,000 ml @ 125 mls/hr Q8H IV 01/14/25 14:45 01/16/25 03:45 125 MLS/HR Aspirin 81 mg DAILY PO 01/15/25 10:00 01/16/25 09:31 81 MG Atorvastatin Calcium 80 mg HS PO 01/14/25 22:00 01/15/25 21:45 80 MG Enalapril Maleate 10 mg DAILY PO 01/15/25 10:00 01/16/25 09:31 10 MG Latanoprost 1 drop HS EACHEYE 01/14/25 22:00 Pantoprazole Sodium 40 mg BID IV 01/14/25 22:00 01/16/25 05:22 40 MG Morphine Sulfate 2 mg Q4HPRN PRN IV 01/14/25 22:45 01/15/25 18:50 2 MG Examination Patient lying in bed, in no acute distress General: Well-built, afebrile, palor, mucosae are moist Cardiovascular: Regular S1 and S2. No murmurs, gallops or rubs. No JVD elevation. No pedal edema Respiratory: Normal B/L air entry on room air. Clear lung sounds on auscultation Abdomen: Soft, nontender, nondistended, normoactive bowel sounds, no rebound tenderness, no organomegaly, no masses Genitourinary: Deferred MSK/skin: Mobilizes 4 limbs. Skin is dry and warm Neurological: No motor, no sensitive deficits, normal speech. Pupils are isocoric and reactive. Psych/Mental Status: A/Ox3 laboratory and microbiology Laboratory Tests 01/16/25 06:18 Test 01/16/25 06:18 Range/Units Serum Glucose 96 74-106 mg/dL Microbiology Date/Time Source Procedure Growth Status 01/14/25 17:21 Nose MRSA Screen - Final Complete Labs and/or images reviewed: Labs reviewed by me, Image(s) reviewed by me Problem List/Assessment/Plan Problem List/Assessment/Plan Abdominal pain likely biliary colic Cholelithiasis Ruled out choledocholithiasis Ruled out cholecystitis History of gastritis Plan: Given the negative MRCP, no abdominal pain and unremarkable labs, patient will benefit from outpatient surgical follow up within 2-4 weeks. Follow up with GI as outpatient within the next 2-4 weeks. Continue Protonix 40 mg daily Avoid NSAIDs Plan discussed with patient in which all questions been answered Case discussed with Dr. Austin Plan discussed with: Patient JOHNY MORIN RESIDENT Jan 16, 2025 18:01
== END 2025-01-16 18:47 | disposition home or self-care (01) ==
LOC: ER 09:48 → OVERFLOW 14:36 → WEST WING 21:10 → CENTRAL 01-15 14:08 → WEST WING 01-15 14:14
PROVIDERS: ADMIT Internal Medicine Geriatric Medicine; ATTEND Internal Medicine Geriatric Medicine
DX: K80.20 Calculus of gallbladder without cholecystitis without obstruction (principal); J90 Pleural effusion, not elsewhere classified; E66.01 Morbid (severe) obesity due to excess calories; I10 Essential (primary) hypertension; Z68.42 Body mass index [BMI] 45.0-49.9, adult; E80.6 Other disorders of bilirubin metabolism; H40.9 Unspecified glaucoma; E78.2 Mixed hyperlipidemia; N28.1 Cyst of kidney, acquired; Z86.73 Personal history of transient ischemic attack (TIA), and cerebral infarction without residual deficits; Z87.891 Personal history of nicotine dependence; Z79.82 Long term (current) use of aspirin
CPT/HCPCS: 36415; 70498; 71045; 74181; 76705; 80048; 80053; 80061; 80076; 80307; 81001; 82270; 82306; 82607; 83036; 83690; 83735; 84100; 84443; 85025; 85610; 85730; 86803; 87081; 87340; 93886; 96361; 96374; G0378; J2470